=== PATIENT | male | born 1945 | race Caucasian/White ===

== ENCOUNTER → 2017-12-31 | Outpatient (CLI) | payer OTHER, BC | LOC: FIMAGING 13:37 | PROVIDERS: ATTEND Physician Assistant Surgical | DX: M43.12 Spondylolisthesis, cervical region (principal); M53.82 Other specified dorsopathies, cervical region; M50.322 Other cervical disc degeneration at C5-C6 level ==

== ENCOUNTER 2018-01-05 18:43 | Inpatient (IN) | payer OTHER, BC ==
[2018-01-05] MEDS ORDERED: ACETAMINOPHEN 325 MG TAB PO ONE (18:59)
[2018-01-05] MEDS ORDERED: HYDROmorphONE/DILAUDID 2 MG/ML INJ IVP ONE (19:11)
[2018-01-05 19:19] LABS: PLATELET COUNT 237 10^3/uL (150-400)
--- NOTE | 2018-01-05 19:34 | EDPHY ---
H & P Stated Complaint: pain, fever sp, C spine fusion Time Seen by Provider: 01/05/18 18:58 HPI/ROS: CHIEF COMPLAINT: Severe postop pain HISTORY OF PRESENT ILLNESS: 72-year-old male 3 days status post multilevel cervical fusion presents with severe postop pain. Difficult to control postoperative pain over the past 3 days, currently on oxycodone, OxyContin, Valium and Flexeril. Discharged home from [facility] today. Unable to get comfortable at home. Pain is located in the posterior neck and shoulders and is severe. No radicular pain. Was not aware he had a fever. Has an ongoing occasional cough. No abdominal pain or dysuria. REVIEW OF SYSTEMS: complete 10 point ROS reviewed and is negative except for the noted elements in the HPI - Personal History Current Tetanus/Diphtheria Vaccine: Yes Current Tetanus Diphtheria and Acellular Pertussis (TDAP): Yes - Medical/Surgical History Hx Asthma: No Hx Chronic Respiratory Disease: No Hx Diabetes: No Hx Cardiac Disease: No Hx Renal Disease: No Hx Cirrhosis: No Hx Alcoholism: No Hx HIV/AIDS: No Hx Splenectomy or Spleen Trauma: No Other PMH: C3-7 fusion, R knee replacement, R rotator cuff surgery - Social History Smoking Status: Former smoker Alcohol Use: Sober Drug Use: None Additional Social History: Neurosurgeon: Dr. Stout - Physical Exam Exam: General Appearance: Alert, pleasant, appears in pain Eyes: Pupils equal and round, no conjunctival pallor or injection ENT, Mouth: Mucous membranes moist Neck: In cervical spine collar Respiratory: Upper airway sounds bilaterally, clear with coughing Cardiovascular: Regular rate and rhythm Gastrointestinal: Abdomen is soft and nontender Neurological: A&O, nonfocal, normal gait Skin: Warm and dry Extremities: Normal inspection Psychiatric: Mood and affect normal Constitutional: Initial Vital Signs Temperature (C) 38.6 C H 01/05/18 18:51 Heart Rate 103 H 01/05/18 18:51 Respiratory Rate 20 01/05/18 18:51 Blood Pressure 125/67 H 01/05/18 18:51 O2 Sat (%) 97 01/05/18 18:51 O2 Delivery Mode Room Air Allergies/Adverse Reactions: No Known Allergies Allergy (Verified 01/05/18 18:49) Home Medications: Medication Instructions Recorded Atorvastatin Calcium [Lipitor 40 40 mg PO HS 12/31/17 mg (*)] Donepezil HCl [Aricept 5 MG (*)] 5 mg PO HS 12/31/17 Gabapentin [Gabapentin 800 mg] 800 mg PO TID 12/31/17 Terazosin HCl [Terazosin HCl] 10 mg PO BID 12/31/17 Acetaminophen [Tylenol 325mg (*)] 650 mg PO Q4 PRN 01/05/18 Cyclobenzaprine [Flexeril 10 MG 10 mg PO TID 01/05/18 (*)] Diazepam [Valium 5 MG (*)] 5 mg PO Q6H PRN 01/05/18 Enoxaparin Sodium 40 mg SQ DAILY 01/05/18 Sennosides/Docusate Sodium 1 each PO BID 01/05/18 [Senna-Docusate Sodium Tablet] oxyCODONE HCL [Oxycodone HCl ER] 10 mg PO BID 01/05/18 oxyCODONE IR [Oxycodone Ir (*)] 5 - 10 mg PO Q4 PRN 01/05/18 Medical Decision Making - Diagnostics Imaging Results: Imaging Impressions Chest X-Ray 01/05/18 18:59 Impression: Hypoventilation and left basilar atelectasis. No pneumonia or failure. Imaging: I viewed and interpreted images myself ED Course/Re-evaluation: This patient presents with severe postoperative pain and new onset fever. Dilaudid 1 mg IV given with relief of pain. Meets SIRS criteria, lactate normal. Chest x-ray is unremarkable. Urinalysis reveals no evidence of urinary tract infection. Blood cultures drawn. No antibiotics given. The patient was stable throughout his emergency department stay. Dr. Baez was consulted and will admit the patient for pain control and fever. Differential Diagnosis: Differential diagnosis includes pyelonephritis, cholecystitis, influenza, cellulitis, pneumonia, abscess, meningitis. - Data Points Laboratory Results: Laboratory Results 01/05/18 16:06 01/05/18 16:06 01/05/18 01/05/18 01/05/18 16:06 16:06 16:06 WBC 10.14 10^3/uL H 10^3/uL (3.80-9.50) RBC 3.80 10^6/uL L 10^6/uL (4.40-6.38) Hgb 11.8 g/dL L g/dL (13.7-17.5) Hct 34.0 % L % (40.0-51.0) MCV 89.5 fL fL (81.5-99.8) MCH 31.1 pg pg (27.9-34.1) MCHC 34.7 g/dL g/dL (32.4-36.7) RDW 12.5 % % (11.5-15.2) Plt Count 237 10^3/uL 10^3/uL (150-400) MPV 9.4 fL fL (8.7-11.7) Neut % (Auto) 71.3 % % (39.3-74.2) Lymph % (Auto) 12.9 % L % (15.0-45.0) [place] % (Auto) 10.9 % % (4.5-13.0) Eos % (Auto) 4.3 % % (0.6-7.6) Baso % (Auto) 0.2 % L % (0.3-1.7) Nucleat RBC Rel Count 0.0 % % (0.0-0.2) Absolute Neuts (auto) 7.22 10^3/uL H 10^3/uL (1.70-6.50) Absolute Lymphs (auto) 1.31 10^3/uL 10^3/uL (1.00-3.00) Absolute Monos (auto) 1.11 10^3/uL H 10^3/uL (0.30-0.80) Absolute Eos (auto) 0.44 10^3/uL H 10^3/uL (0.03-0.40) Absolute Basos (auto) 0.02 10^3/uL 10^3/uL (0.02-0.10) Absolute Nucleated RBC 0.00 10^3/uL 10^3/uL (0-0.01) Immature Gran % 0.4 % % (0.0-1.1) Immature Gran # 0.04 10^3/uL 10^3/uL (0.00-0.10) VBG Lactic Acid 1.2 mmol/L mmol/L (0.7-2.1) Sodium 130 mEq/L L mEq/L (135-145) Potassium 3.9 mEq/L mEq/L (3.3-5.0) Chloride 94 mEq/L L mEq/L (97-110) Carbon Dioxide 28 mEq/l mEq/l (22-31) Anion Gap 8 mEq/L mEq/L (6-14) BUN 12 mg/dL mg/dL (7-23) Creatinine 0.9 mg/dL mg/dL (0.7-1.3) Estimated GFR > 60 Glucose 123 mg/dL H mg/dL (70-100) Calcium 9.4 mg/dL mg/dL (8.5-10.4) Medications Given: Discontinued Medications Acetaminophen (Tylenol) 650 mg PO EDNOW ONE Stop: 01/05/18 19:00 Last Admin: 01/05/18 19:18 Dose: 650 mg Hydromorphone HCl (Dilaudid) 1 mg IVP EDNOW ONE Stop: 01/05/18 19:12 Last Admin: 01/05/18 19:18 Dose: 1 mg Departure - Departure Disposition: [facility] Acute Clinical Impression: Postoperative pain after spinal surgery Condition: Fair
[2018-01-05] MEDS ORDERED: ACETAMINOPHEN 325 MG TAB PO PRN (21:04)
[2018-01-05] MEDS ORDERED: DIAZEPAM 5 MG TAB PO PRN (21:04)
[2018-01-05 21:15] LABS: PLATELET COUNT 220 10^3/uL (150-400)
[2018-01-05] MEDS: CYCLOBENZAPRINE 10 MG TAB PO SCH (21:29)
[2018-01-05] MEDS: GABAPENTIN 400 MG CAP PO SCH (21:30)
[2018-01-06] MEDS: oxyCODONE IR 5 MG TAB PO PRN ×4 (00:08→14:42)
--- NOTE | 2018-01-06 08:00 | GHP ---
DATE OF ADMISSION: 01/05/2018 CHIEF COMPLAINT: 1. Acute exacerbation of postoperative pain. 2. Hyponatremia. 3. Chronic low back pain. 4. Rash. HISTORY OF PRESENT ILLNESS: The patient is a 72-year-old male who was seen and evaluated both by me and Dr. Petersen this a.m. The patient is about 4 days from a multilevel cervical fusion in which he underwent an ACDF at C3-4 as well as C5 -6, C6-7. He is currently in a collar and was admitted after his immediate postoperative care to [facility]. He had done well yesterday morning and met criteria for discharge from that hospital. He was discharged home yesterday and then in the afternoon yesterday as well as early evening, he developed horrible pain between his shoulder blades. He denies any upper extremity complaints. He states he was feverish, but has no fevers currently. He is currently on oxycodone, OxyContin, Valium and Flexeril. He was unable to get comfortable at home and brought himself to the emergency department for evaluation and admission. He has no real radicular pain. He has some achiness in his left shoulder. He has no numbness, tingling or weakness in his upper extremities. No numbness, tingling, weakness or pain in his lower extremities. No chest pain or shortness of breath. No nausea or vomiting. No abdominal complaints. No dysuria, hematuria, nocturia, urgency or frequency. The patient denies any change in his lower extremity. He is able to ambulate well. REVIEW OF SYSTEMS: Complete 10-point review of systems was reviewed and negative, otherwise noted in HPI. PAST MEDICAL/SURGICAL HISTORY: Consistent for the followin. ACDF C3-4, C5-6, C6-7. 2. Right knee replacement. 3. Right rotator cuff. SOCIAL HISTORY: Patient is sober, former smoker. ALLERGIES: No known drug allergies. MEDICATIONS PRIOR TO ADMISSION: Lovenox, Senokot, Tylenol, Lipitor, Flexeril, Valium, Aricept, gabapentin, oxycodone, OxyContin, terazosin. FAMILY HISTORY: Reviewed, noncontributory. IMMUNIZATIONS: Reported up to date. TRAVEL: No recent travel. PHYSICAL EXAM: GENERAL: This is an awake, alert and oriented male in no acute distress. VITAL SIGNS: Most recent: Blood pressure 150/87 with a MAP of 108, 79 heart rate, 18 respirations, 94% on 2 L, temperature 37.1. HEENT: Head is normocephalic, atraumatic. Pupils are equal, round, reactive to light. EOMI intact. Full visual pérez by confrontation. Ears are patent. Nose is patent. NECK: Soft and supple. No midline tenderness. Full range of motion in flexion, extension, lateral bending and rotation. No nuchal rigidity. RESPIRATORY/CARDIAC: Deferred. ABDOMEN: Soft, nontender. No peritoneal signs. /RECTAL: Deferred. NEURO: Patient is awake, alert, oriented to name , place, location, date, time and situation. Memory is intact to immediate, past and current events. Speech: No aphasia, dysarthria, dysphonia. Cranial nerves 2-12 are grossly intact. Motor: The patient has 5/5 strength in all muscle groups of bilateral upper and lower extremities to include deltoids, biceps, triceps, brachioradialis, wrist flexion, extensors, back tender cylinder, intrinsic, fingers, iliopsoas, quadriceps, hamstring, plantar flexion, dorsiflexion, EHL testing. Sensation is grossly intact to light touch throughout all dermatome distributions, upper extremities. Negative straight leg raise. Negative JENNIFER test. Reflexes of biceps, triceps, brachioradialis, knee jerk and ankle jerk are 2+/4. Toes are downgoing bilaterally. Renee negative. Babinski negative. No evidence of clonus. SKIN: There is a macular papular rash extending in the lower back bilaterally to both inguinal area and to his groin. Consultation from was ordered. MEDICAL DECISION MAKING/DIAGNOSTIC STUDIES: Laboratory tests obtained 2017, show a white count of 10.24 with an H and H of 11.2 and 32.9 with a platelet count of 220. Lactic acid was 1.2. Chemistry obtained 01/05/2018: Sodium 130, potassium 4.1, chloride 95, CO2 28, BUN 12, creatinine 0.9 and glucose 119. Urine was obtained, which showed 1+ ketones, otherwise negative. He has negative for flu A and B. Chest x-ray obtained 01/05/2018, shows hypoventilation, left basilar atelectasis. No pneumonia or failure noted. Blood cultures x2 are pending. IMPRESSION: 1. Postop day #4 status post anterior cervical diskectomy and fusion C3-4, C5-6 , C6-7. 2. Hyponatremia. 3. Rash to lower back, bilateral inguinal area. 4. Postoperative pain. PLAN/DISCUSSION: The patient is a 72-year-old male who was seen evaluated both by me and Dr. Petersen. He is a patient of Dr. Dexter Stout's and just recently underwent surgery with him this last week. He had been doing well and was discharged by me from [facility] yesterday. He met criteria from nursing staff as well as PT/OT. He went home, felt feverish, although labs at this point look fine, his chest x-ray was fine, urinalysis was okay as well as CBC. He has blood cultures pending. He had a T-max yesterday of 38.6, this a.m. was 37.1 and stable since last night at 8 o'clock. We will address his pain needs at this point. The patient was staffed by Dr. Petersen. Dr. Stout will see him later today or tomorrow. I did speak with Internal Medicine and the hospitalist service to have their opinion about this rash, as well his low sodiums. We appreciate their input and care. All questions and concerns were answered. Patient understands and agrees. /[id number]/MODL MTDD
[2018-01-06] MEDS: CYCLOBENZAPRINE 10 MG TAB PO SCH ×3 (08:17→22:34)
[2018-01-06] MEDS: GABAPENTIN 400 MG CAP PO SCH ×3 (08:17→22:35)
[2018-01-06] MEDS: ENOXAPARIN 40 MG/0.4 ML SYR SC SCH (08:18)
[2018-01-06] MEDS: TERAZOSIN HCL 5 MG CAP PO SCH ×2 (08:30→22:36)
--- NOTE | 2018-01-06 11:03 | ASMTCMCOM ---
CM Note CM Note Notes: Spoke with pt in the room and with pt's RN and PT. Pt admitted for post operative pain after discharge yesterday from [facility] for a cervical fusion. Pt scheduled to have lower spine surgery on at [facility], undecided if it will happen here or there. Pt's pain still not controlled, however, PT has discharged him and feels he will be independent on D/C. Pt lives in [place] and is staying with his sister for the immediate future here in [place]. CM to follow. D/C Plan: Home to sister independently. Date Signed: 01/06/2018 11:03 AM Electronically Signed By:Shannon Beard
[2018-01-06] MEDS: ACETAMINOPHEN 500 MG TAB PO SCH ×2 (13:19→22:32)
--- NOTE | 2018-01-06 14:11 | ASMTCMCOM ---
CM Note CM Note Notes: Pt open with [facility]. Date Signed: 01/06/2018 02:10 PM Electronically Signed By:HEATHER Clay
[2018-01-06] MEDS: FAMOTIDINE 20 MG TAB PO SCH ×2 (14:46→22:34)
[2018-01-06] MEDS: CETIRIZINE 10 MG TAB PO SCH (14:46)
[2018-01-06] MEDS: CLOTRIMAZOLE/BETAMET DIPROP 15 GM CRTUBE TP SCH ×2 (16:48→22:33)
--- NOTE | 2018-01-06 19:15 | GCON ---
REFERRING PHYSICIAN: Montana Kaur PA-C REASON FOR CONSULTATION: Evaluation of rash and hyponatremia. HISTORY OF PRESENT ILLNESS: The patient is a 72-year-old male who underwent an ACDF at C3-C4, as well as C5-C6 and C6-C7 approximately 4 days prior to his admission. Overall he did well with surgery and was discharged home from the hospital. He came to the emergency room because he was having severe pain between his shoulder blade area. He had told the admitting group that he was having fevers. During my interview, he said he was not having any but had some chills. He describes feeling more tired than usual for the past 2 days. He is having difficulty thinking straight and feels like he cannot absorb the information. He developed a rash that started approximately 48 hours ago. He is not sure if it is related to new medications. He used his sister's laundry soap, which he has not used before, and the rash is itching. He denies any chest pain. He said he is chronically short of breath. This has been ongoing for 50 years. He has a history of smoking, but quit 35 years ago. He denies any increased frequency or burning with urination. He has had a recent bowel movement. His chief complaint during my evaluation is that he is having severe pain where he had surgery in the cervical spine. He rates it at a level 8 even with the pain medications. PAST MEDICAL HISTORY: 1. Knee replacement. 2. Carpal tunnel surgery. 3. Right rotator cuff surgery. 4. Right knee replacement. 5. Status post an ACDF of C3-C4, C4-C6, C6-C7 in December of 2017. 6. Hyperlipidemia. SOCIAL HISTORY: He quit smoking 35 years ago. He, prior to this, smoked 2 packs a day for 12 years. He drinks a six-pack of beer at night. He is retired. He is a [place] . He is currently not in a relationship. He has a total of 3 children and 2 grandchildren. FAMILY HISTORY: His mom at age 79 from cancer. His father at age 89. He is not clear of the cause. ALLERGIES: No known allergies. HOME MEDICATIONS: Senna 1 tab b.i.d., Flexeril 10 mg p.o. t.i.d., enoxaparin sodium 40 mg subcu daily, Oxy IR 5-10 mg p.o. q.4 hours p.r.n., Valium 5 mg q.6 hours p.r.n., oxycodone 10 mg p.o. b.i.d., Tylenol 650 mg p.o. q.4 hours p.r.n. , terazosin 10 mg p.o. b.i.d., gabapentin 800 mg t.i.d., Aricept 5 mg p.o. q.h.s., and Lipitor 40 mg q.h.s. REVIEW OF SYSTEMS: A 10-point review of systems was performed and was negative , other than pertinent positives in the HPI and past medical history. PHYSICAL EXAM: GENERAL: The patient is a 72-year-old male who appears uncomfortable during my interview. VITAL SIGNS: Blood pressure is 123/58, heart rate of 102, respiratory rate of 18. O2 saturation on 2 L is 97%. Temperature is 37.3 Celsius. EYES: Pupils are equal and reactive. EOMs are intact. No conjunctival injection noted. ENT: Normal ears, hearing intact. NECK: His trachea is midline. He has significant swelling around the neck area. He has a hard collar in place. Steri-Strips are well intact. No redness or drainage is noted. CARDIOVASCULAR: He is in a regular rate and rhythm. He is slightly tachycardic. No murmurs, rubs, or gallops noted. CHEST /LUNGS: Normal respiratory effort. Clear, without wheezing, rales, or rhonchi. ABDOMEN: Soft, nontender. No rebound. No guarding. SKIN: He has a maculopapular rash that extends from his lower back bilaterally into both inguinal areas. The rash around the inguinal area is red and tender. MUSCULOSKELETAL: He is up walking in the room without any difficulty. He appears to have equal upper and lower extremity strength. He is alert and oriented. At times, he loses focus, but appears to have overall normal mood and affect. Normal judgment and insight. LABORATORY DATA: Reviewed. A CBC shows a white blood cell count of 10.42, hemoglobin of 11.2, hematocrit of 32.9, platelet count of 220. Venous lactic acid is 1.2. Chemistry: Sodium is 130, potassium 4.1, chloride of 95, CO2 of 28 , BUN of 12, creatinine 0.9, glucose of 119. A urinalysis shows 1+ ketones, otherwise negative. He was checked for the flu, which is negative. IMAGIN. Chest x-ray shows hypoventilation and left basilar atelectasis. No pneumonia or failure. 2. Cervical spine x-ray shows anterior cervical fusion at C4-C5 and C5 through C7 with satisfactory alignment. I reviewed his care with Montana Kaur, physician food and nutrition services assistant, and discussed his plan of care. ASSESSMENT/PLAN: 1. Pruritic rash. It is difficult to tell if this is fungal versus a seborrheic dermatitis, especially noted in the inguinal area. Will place him on Lotrisone cream to see if this improves. If it does not improve, will further evaluate. Also, because he is having some ongoing itching, we will prescribe Zyrtec to be scheduled daily, as well as Pepcid. 2. Hyponatremia. Will check urine studies, as well as a TSH. He has not been taking very much in because he is having some difficulty swallowing. 3. Moderate oropharyngeal dysphagia. He was seen by Speech Therapy. Diet has been ordered for him. Will place him on a calorie count to make sure he is getting adequate intake. 4. Alcohol use. This may be why he is slightly tachycardic. Will monitor for any signs or symptoms of withdrawal. He may benefit getting a beer with his evening meal. 5. Hyperglycemia. Suspect this is stress induced. 6. Hyperlipidemia. Continue statin. 7. Status post cervical fusion. Care per Neurosurgery. 8. Chronic low back pain. The plan is for him to get surgery this coming . Would recommend making sure his dysphagia and his rash are addressed. Also, will get blood cultures for completeness sake since he said he had some chills and concern for fevers. 9. Back pain. He rates it at a level 8. Will place him on scheduled Tylenol and continue his p.r.n. medications. Will continue monitoring. Thank you for this consultation. The hospitalist will continue to follow the patient during his stay. /[id number]/MODL MTDD
[2018-01-06] MEDS ORDERED: LACTULOSE 20 GM/30 ML UDCUP PO PRN (19:55)
[2018-01-06] MEDS ORDERED: MAGNESIUM HYDROXIDE 30 ML UDCUP PO PRN (19:55)
[2018-01-06] MEDS ORDERED: BISACODYL 10 MG SUPP PR PRN (19:55)
[2018-01-06] MEDS ORDERED: ATORVASTATIN CALCIUM 40 MG TAB PO SCH (21:00)
[2018-01-06] MEDS ORDERED: DONEPEZIL HCL 5 MG TAB PO SCH (21:00)
[2018-01-06] MEDS: SENNOSIDES/DOCUSATE SODIUM TAB PO SCH (22:35)
[2018-01-07] MEDS: ACETAMINOPHEN 500 MG TAB PO SCH ×2 (05:50→13:45)
[2018-01-07] MEDS: oxyCODONE IR 5 MG TAB PO PRN ×2 (06:12→13:46)
--- NOTE | 2018-01-07 07:57 | SOAPPROG ---
SOAP Progress Note Assessment/Plan: Assessment: 72 yo POD #5 C3/4, 5/6, C6/7 ACDF Plan: neuro: stable, pain improving continued leg pain, plan for surgery on Friday PT/OT likely dc home if cleared by medicine fevers, cultures negative so far, appreciate medicine help please call with neuro changes 01/07/18 07:55 Subjective: continued neck pain, no arm pain, no weakness. Objective: Vital Signs Temp Pulse Resp BP Pulse Ox 36.9 C 109 H 17 155/80 H 98 01/06/18 22:19 01/06/18 22:19 01/06/18 22:19 01/06/18 22:19 01/06/18 22:19 Laboratory Results 01/05/18 21:04 01/07/18 04:42 01/06/18 01/07/18 01/08/18 05:59 05:59 05:59 Intake Total 260 1000 Output Total 1100 Balance 260 -100 AAOX4, +FC PERRL, EOMI, no facial droop 5/5 + light touch C/D/I ICD10 Worksheet Patient Problems: Problems Problem Status Onset Postoperative pain after spinal surgery Acute
[2018-01-07] MEDS ORDERED: POLYETHYLENE GLYCOL 3350 17 GM PKT PO SCH (09:00)
[2018-01-07] MEDS: FAMOTIDINE 20 MG TAB PO SCH (09:02)
[2018-01-07] MEDS: CYCLOBENZAPRINE 10 MG TAB PO SCH ×2 (09:02→17:05)
[2018-01-07] MEDS: GABAPENTIN 400 MG CAP PO SCH ×2 (09:02→17:05)
[2018-01-07] MEDS: CETIRIZINE 10 MG TAB PO SCH (09:02)
[2018-01-07] MEDS: TERAZOSIN HCL 5 MG CAP PO SCH (09:02)
[2018-01-07] MEDS: ENOXAPARIN 40 MG/0.4 ML SYR SC SCH (09:03)
[2018-01-07] MEDS: SENNOSIDES/DOCUSATE SODIUM TAB PO SCH (09:03)
--- NOTE | 2018-01-07 11:07 | PDMN ---
Medical Necessity Medical necessity: Pt meets IP criteria as of 01/05/2018 per PA and MCG S-320; est los > 2 mn for ongoing management of post operative pain 4 days s/p ACDF as well as rash and hyponatremia; requiring pain management, hospitalist consult and therapies.
[2018-01-07] MEDS ORDERED: predniSONE 20 MG TAB PO ONE (12:53)
--- NOTE | 2018-01-07 13:01 | HOSPPROG ---
Hospitalist Progress Note Assessment/Plan: 72 yo M w recent c spine surgery admitted w fever, rash, hyponatremia rash: hypersensitivity, either from laundry detergent or preop wipes (he wiped all over body_ no mm involvement slightly elevated eosinophil count noted pred X 1 dc lotrimin (not fungal) rec 0.5% hydrocortisone CREAM as outpt hyponatremia: probn hypovolemic resolved fever: workup neg (cx w no infiltyarte, interp by me) surgical wound OK OK for dc from IM perspective Subjective: rash examined Objective: Vital Signs Temp Pulse Resp BP Pulse Ox 37.4 C 96 18 99/49 L 92 01/07/18 07:55 01/07/18 07:55 01/07/18 07:55 01/07/18 07:55 01/07/18 07:55 Laboratory Results 01/05/18 21:04 01/07/18 04:42 01/06/18 01/07/18 01/08/18 05:59 05:59 05:59 Intake Total 260 1000 Output Total 1100 Balance 260 -100 - Physical Exam Constitutional: no apparent distress Eyes: PERRL Ears, Nose, Mouth, Throat: moist mucous membranes, hearing normal Cardiovascular: regular rate and rhythym Respiratory: no respiratory distress Gastrointestinal: normoactive bowel sounds Genitourinary: No new in urethra Skin: other (pruritic, erythematous raised rash on chest, torso, most intense and nearly confluent around waistband, less so in inquinal fold. no MM involvement) ICD10 Worksheet Patient Problems: Problems Problem Status Onset Postoperative pain after spinal surgery Acute
[2018-01-07] MEDS: CLOTRIMAZOLE/BETAMET DIPROP 15 GM CRTUBE TP SCH (13:02)
--- NOTE | 2018-01-07 16:02 | ASMTLACE ---
LACE Length of stay for Answers: 3 days current admission Acuity / Level of Answers: Yes Care: Did the patient have an inpatient admission? Comorbidities - select Answers: Opioid dependence all that apply / Chronic pain # of Emergency department Answers: 1-2 visits in the last 6 months Score: 11 Date Signed: 01/07/2018 04:01 PM Electronically Signed By:HEATHER Clay
--- NOTE | 2018-01-07 16:05 | ASMTCMCOM ---
CM Note CM Note Notes: Pt medically stable for d/c, [facility] to follow up with pt when appropriate. Pt to return Friday for additional surgery. Date Signed: 01/07/2018 04:05 PM Electronically Signed By:HEATHER Clay
[2018-01-07 16:09] VITALS: BP 135/65
== END 2018-01-07 17:27 | disposition home or self-care (01) | DRG 948 ==
LOC: OBSVTOIN 19:52 → F3N 20:47
PROVIDERS: ADMIT Neurological Surgery; ATTEND Neurological Surgery
DX: G89.18 Other acute postprocedural pain (principal); M54.2 Cervicalgia; E87.1 Hypo-osmolality and hyponatremia; M54.5 Low back pain; R21 Rash and other nonspecific skin eruption; R13.12 Dysphagia, oropharyngeal phase; E78.5 Hyperlipidemia, unspecified; Z98.1 Arthrodesis status; Z96.651 Presence of right artificial knee joint; Z87.891 Personal history of nicotine dependence
CPT/HCPCS: 92526-GN; 92610-GN; 96374; 97161-GP; 97165-GO; G8978-GP-CI; G8979-GP-CI; G8980-GP-CI; G8987-GO-CI; G8988-GO-CH; G8989-GO-CI; G8996-GN-CL; G8997-GN-CJ; J1170; J1650; J2270; J7512

== ENCOUNTER 2018-01-08 13:43 | Observation (INO) | payer OTHER, BC ==
[2018-01-13] MEDS ORDERED: THROMBIN (BOVINE) 20,000 UNIT VIAL TP ONE (13:48)
[2018-01-13] MEDS ORDERED: CHLORHEXIDINE GLUC HIBICLENS 118 ML BTL TP ONE (13:48)
[2018-01-13] MEDS ORDERED: BACITRACIN ZINC 14.2 GM OINTTUBE TP ONE (13:48)
[2018-01-13] MEDS ORDERED: ACETAMINOPHEN 500 MG TAB PO ONE (13:49)
[2018-01-13] MEDS ORDERED: ceFAZolin 2 GM/DEXTROSE 100 ML IV ONE (13:49)
[2018-01-13] MEDS ORDERED: BUPIVACAINE/EPI 0.25% 30 ML SDV ONE (13:49)
[2018-01-13] MEDS ORDERED: GABAPENTIN 300 MG CAP PO ONE (13:49)
[2018-01-13] MEDS ORDERED: BACITRACIN 50,000 UNITS/10 ML SYR IRR ONE (13:49)
[2018-01-13] MEDS ORDERED: LR 1,000 ML IV ONE (14:27)
--- NOTE | 2018-01-13 15:08 | PDHPUP ---
History & Physical Update H&P update statement: This history and physical update is based on an assessment of the patient which was completed after admission or registration (within 24 hours), but prior to the surgery/procedure. H&P update: H&P reviewed & patient examined, no change in patient's condition since H&P completed (All questions answered and consents signed. Patient marked. Reviewed with him the L2-L5 decompressive laminectomy (slightly modification from the microdecompression planned with Dr Laura). Also reviewed that he still has aome foraminal stenosis and L5/S1 stenosis that was not going to be addressed with this surgery and that may require additional surgery in the future. He and his daughter expressed an understanding and still wich to proceed.)
[2018-01-13] MEDS ORDERED: fentaNYL 250 MCG/5 ML INJ ONE (15:13)
[2018-01-13] MEDS ORDERED: PROPOFOL/EMULSION 500 MG/50 ML BOTTLE IV ONE ×2 (15:14)
[2018-01-13] MEDS ORDERED: MAGNESIUM HYDROXIDE 30 ML UDCUP PO PRN (16:04)
[2018-01-13] MEDS ORDERED: LACTULOSE 20 GM/30 ML UDCUP PO PRN (16:04)
[2018-01-13] MEDS ORDERED: POLYETHYLENE GLYCOL 3350 17 GM PKT PO PRN (16:04)
[2018-01-13] MEDS ORDERED: BISACODYL 10 MG SUPP PR PRN (16:04)
[2018-01-13] MEDS ORDERED: diphenhydrAMINE 25 MG CAP PO PRN (16:04)
[2018-01-13] MEDS ORDERED: NS 1,000 ML IV SCH (16:15)
--- NOTE | 2018-01-13 16:16 | POSTOPPROG ---
Post Op Note Date of Operation: 01/13/18 Surgeon: Jose Bustamante Seed Laboratory Technician: RUSTAM Nickerson PAC Anesthesia: GET(General Endotracheal) Pre-op Diagnosis: lumbar stenosis Post-op Diagnosis: lumbar stenosis Indication: lumbar stenosis Inf/Abcess present in the surg proc area at time of surgery?: No PA Addendum - Addendum .: S: O: NAD A&Ox3 MAEx4 5/5 and equal in BUE and BLE A/P 72y/o male s/p L2-L5 laminectomy -Advance diet as tolerated -Optimize pain management -Continue hard cervical collar s/p ACDF C3/4 and C5-7 with a few weeks ago -JPx1 -DVT prophx: TEDs, SCDs, Lovenox okay POD1 -Please notify NS with any change in neuro/motor exam
[2018-01-13] MEDS ORDERED: MIDAZOLAM 2 MG/2 ML VIAL IVP ONE (16:30)
[2018-01-13 16:31] LABS: PLATELET COUNT 367 10^3/uL (150-400)
--- NOTE | 2018-01-13 16:36 | PDANEPAE ---
ANE History of Present Illness 72 year old male for L2-L5 laminectomy. Recent 01/02/18 cervical fusion. Reports ETOH 6/day. ANE Past Medical History - Cardiovascular History Hx Hypertension: Yes Hx Arrhythmias: No Hx Chest Pain: No Hx Coronary Artery / Peripheral Vascular Disease: No Hx CHF / Valvular Disease: No Hx Palpitations: No - Pulmonary History Hx COPD: No Hx Asthma/Reactive Airway Disease: No Hx Recent Upper Respiratory Infection: No Hx Oxygen in Use at Home: No Hx Sleep Apnea: Yes Sleep Apnea Screening Result - Last Documented: Positive Pulmonary History Comment: LIBERTAD positive, uses mouthpiece - Neurologic History Hx Cerebrovascular Accident: No Hx Seizures: No Hx Dementia: No - Endocrine History Hx Diabetes: No - Renal History Hx Renal Disorders: No Renal History Comment: BPH - Liver History Hx Hepatic Disorders: No - Neurological & Psychiatric Hx Hx Neurological and Psychiatric Disorders: Yes Neurological / Psychiatric History Comment: anxiety, PTSD ([place] vet) - Cancer History Hx Cancer: No - Congenital Disorder History Hx Congenital Disorders: No - GI History Hx Gastrointestinal Disorders: No - Other Health History Other Health History: Wears glasses. bilateral hearing aids. generalized arthritis - Chronic Pain History Chronic Pain: Yes (generalized from arthritis) - Surgical History Prior Surgeries: Cervial spine fusion and discectomy (C3-7). total right knee replacement, 2012. right rotator cuff repair, 2015. right hand carpel tunnel, 2011 ANE Review of Systems Review of systems is: negative Review of Systems: - Exercise capacity METS (RN): 4 METS ANE Patient History - Allergies Allergies/Adverse Reactions: chlorhexidine Allergy (Verified 01/13/18 14:10) - Home Medications Home Medications: Atorvastatin Calcium [Lipitor 40 mg (*)] 40 mg PO HS 12/31/17 [Last Taken 1 Day Ago ~01/12/18] Donepezil HCl [Aricept 5 MG (*)] 5 mg PO HS 12/31/17 [Last Taken 1 Day Ago ~] Gabapentin [Gabapentin 800 mg] 800 mg PO TID 12/31/17 [Last Taken 01/13/18] Terazosin HCl 10 mg PO BID 12/31/17 [Last Taken 1 Day Ago ~01/12/18] Cyclobenzaprine [Flexeril 10 MG (*)] 10 mg PO TID 01/05/18 [Last Taken 01/13/18 10:30] oxyCODONE HCL [Oxycodone HCl ER] 10 mg PO BID 01/05/18 [Last Taken 1 Day Ago ~] oxyCODONE IR [Oxycodone Ir (*)] 5 - 10 mg PO Q4 PRN 01/05/18 [Last Taken 03:00] - NPO status NPO Since - Liquids (Date): 01/13/18 NPO Since - Liquids (Time): 11:30 NPO Since - Solids (Date): 01/12/18 NPO Since - Solids (Time): 20:30 - Smoking Hx Smoking Status: Former smoker - Family Anes Hx Family Hx Anesthesia Complications: none ANE Labs/Vital Signs - Labs Result Diagrams: 01/13/18 16:09 - Vital Signs Blood Pressure: 155/81 Heart Rate: 90 Respiratory Rate: 20 O2 Sat (%): 93 Height: 170.18 cm Weight: 83.915 kg ANE Physical Exam - Airway Neck exam: decreased ROM, spinal fusion, C-collar in place Mallampati Score: Class 2 Mouth exam: normal dental/mouth exam - Pulmonary Pulmonary: no respiratory distress - Cardiovascular Cardiovascular: regular rate and rhythym - ASA Status ASA Status: III ANE Anesthesia Plan Anesthesia Plan: general endotracheal anesthesia Specialized Airway: video laryngoscope
[2018-01-13] MEDS ORDERED: DEXAMETHASONE 4 MG/ML VIAL IVP PRN (16:39)
[2018-01-13] MEDS ORDERED: LABETALOL HCL 5 MG/ML 20 ML MDV IVP PRN (16:39)
[2018-01-13] MEDS ORDERED: LR 500 ML IV PRN (16:39)
[2018-01-13] MEDS ORDERED: NALOXONE HCL 0.4 MG/ML INJ IVP PRN (16:39)
[2018-01-13] MEDS ORDERED: ALBUTEROL 3 ML DEYVIAL IH PRN (16:39)
[2018-01-13] MEDS ORDERED: DIAZEPAM 5 MG/ML 1 ML SYR ONE ×2 (18:09→19:20)
[2018-01-13] MEDS: DIAZEPAM 5 MG/ML 1 ML SYR IVP PRN ×5 (18:10→20:19)
[2018-01-13] MEDS ORDERED: fentaNYL 100 MCG/2 ML INJ ONE ×2 (18:23→21:42)
[2018-01-13] MEDS ORDERED: METHOCARBAMOL 750 MG TAB ONE (18:23)
[2018-01-13] MEDS ORDERED: HYDROmorphONE/DILAUDID 2 MG/ML INJ ONE ×2 (18:23→21:42)
[2018-01-13] MEDS: fentaNYL 100 MCG/2 ML INJ IVP PRN ×5 (18:24→22:41)
[2018-01-13] MEDS: HYDROmorphONE/DILAUDID 2 MG/ML INJ IVP PRN ×7 (18:32→22:42)
[2018-01-13] MEDS: METHOCARBAMOL 750 MG TAB PO PRN (18:36)
--- NOTE | 2018-01-13 18:42 | POSTANESTH ---
Post Anesthetic Evaluation Cardiovascular Status: Normal, Stable Respiratory Status: Normal, Stable Level of Consciousness/Mental Status: Moderately Sleepy Pain Control: Adequate, Prn Tx Ordered Nausea/Vomiting Control: Adequate, Prn Tx Ordered Complications Possibly Related to Anesthesia: None Noted
[2018-01-13] MEDS ORDERED: oxyCODONE IR 5 MG TAB ONE (20:09)
[2018-01-13] MEDS: oxyCODONE IR 5 MG TAB PO PRN (20:11)
[2018-01-13] MEDS ORDERED: KETOROLAC 30 MG/1 ML SDV ONE (20:48)
[2018-01-13] MEDS ORDERED: DONEPEZIL HCL 5 MG TAB PO SCH (21:00)
[2018-01-13] MEDS: FAMOTIDINE 20 MG TAB PO SCH (21:00)
[2018-01-13] MEDS: TERAZOSIN HCL 5 MG CAP PO SCH (21:00)
[2018-01-13] MEDS: SENNOSIDES/DOCUSATE SODIUM TAB PO SCH (21:00)
[2018-01-13] MEDS ORDERED: ATORVASTATIN CALCIUM 40 MG TAB PO SCH (21:00)
[2018-01-13] MEDS ORDERED: KETOROLAC 30 MG/1 ML SDV IVP ONE (21:15)
[2018-01-13] MEDS: ceFAZolin 2 GM/DEXTROSE 100 ML IV SCH (21:59)
[2018-01-13] MEDS ORDERED: GABAPENTIN 400 MG CAP PO SCH (22:00)
--- NOTE | 2018-01-13 23:07 | GOP ---
DATE OF OPERATION: 01/13/2018 SURGEON: Jose Bustamante MD SMELTER LINER: Nicole Nickerson, HUSSEIN. ANESTHESIA: General. PREOPERATIVE DIAGNOSIS: 1. Lumbar spondylosis of L2 through L5 with severe spinal stenosis L2-L3, L3-L4 , and L4-L5. 2. Lower extremity radiculopathy and claudication. 3. Treatment refractory to nonoperative intervention. POSTOPERATIVE DIAGNOSIS: 1. Decompressive laminectomy with bilateral medial facetectomies of L2-L3, L3- L4, and L4-L5. 2. Use of intraoperative fluoroscopy, less than 1 hour physician time. 3. Use of neuromonitoring. 4. Use of microscope. PROCEDURE PERFORMED: 1. Decompressive laminectomy with bilateral medial facetectomies of L2-L3, L3- L4, and L4-L5. 2. Use of intraoperative fluoroscopy, less than 1 hour physician time. 3. Use of neuromonitoring. 4. Use of microscope. FINDINGS: per imaging SPECIMENS: None. ESTIMATED BLOOD LOSS: 100 mL. INDICATIONS: The patient is a very pleasant gentleman who is a patient of my partner, Dr. Stout, who underwent prior cervical surgery recently. Dr. Stout had to leave [facility], however, and the patient wished to pursue lumbar surgery sooner rather than later and was scheduled for a microdecompression. However, I felt the patient would be better suited for a full lumbar laminectomy and decompression, given his severe central stenosis. Patient was willing to proceed forth after discussion of the risks, benefits, and alternatives. He did understand also that he had foraminal stenosis and some degenerative disease at the L5-S1 level which may require additional surgery in the future. DESCRIPTION OF PROCEDURE: Patient was brought to the operating theater and underwent general anesthesia without complications. He had Venodynes, JOSE hose , and the appropriate lines placed by Anesthesia. He was flipped prone onto the Vu frame, and all bony prominences were inspected and padded. The lower lumbar region was then prepped and draped in usual sterile surgical fashion. A time-out was completed per protocol, and the patient received antibiotics within 1 hour of incision. Using lateral fluoroscopy and a spinal needle, we picked our entry point to the L2 through L5 levels. This was marked in the midline. The incision was infiltrated with Marcaine with epinephrine. The incision was taken down with the scalpel blade and then using monopolar taken down to midline through the lumbodorsal fascia. A subperiosteal dissection was carried to the medial facet joints of L2-L3, L3-L4, and L4-5. Deep retractors were placed to maintain exposure. We confirmed our level using lateral fluoroscopy. At this point, using a combination of bur tip on the drill bit, Kerrison punches, and Leksell rongeur, we completed a decompressive laminectomy with bilateral medial facetectomies of L2-L3, L3-L4, and L4-5. We continued until we felt that everything was well decompressed on manual palpation. We confirmed the decompression levels on lateral x-rays. We then placed a drain in the subfascial space. The wound was irrigated copiously with bacitracin irrigation. We closed the wound in multiple layers using Vicryl sutures for the deep layers and Dermabond for the skin. The patient's wounds were dressed sterilely. He was then flipped supine onto the transfer cart, where he was awakened, extubated, and taken to the recovery room in stable condition. There were no complications and no noted changes on neuromonitoring throughout the procedure. COMPLICATIONS: None. /[id number]/MODL MTDD
[2018-01-13] MEDS: GABAPENTIN 300 MG CAP PO SCH (23:38)
[2018-01-13] MEDS: CYCLOBENZAPRINE 10 MG TAB PO SCH (23:39)
[2018-01-13] MEDS: ACETAMINOPHEN 500 MG TAB PO SCH (23:52)
[2018-01-14] MEDS: METHOCARBAMOL 750 MG TAB PO PRN ×2 (02:15→16:20)
[2018-01-14] MEDS: oxyCODONE IR 5 MG TAB PO PRN ×2 (02:15→14:02)
[2018-01-14 05:09] LABS: PLATELET COUNT 357 10^3/uL (150-400)
[2018-01-14] MEDS: ceFAZolin 2 GM/DEXTROSE 100 ML IV SCH (05:47)
[2018-01-14] MEDS: GABAPENTIN 300 MG CAP PO SCH ×2 (05:52→14:01)
[2018-01-14] MEDS: ACETAMINOPHEN 500 MG TAB PO SCH ×2 (05:53→14:01)
--- NOTE | 2018-01-14 07:39 | NEUSURGPN ---
Date of Surgery: 01/13/18 Post Op Day: 1 Assessment/Plan: Assessment: 72 y/o male s/p L2-L5 laminectomy POD #1 Plan: -pt states that he has lower back pain. Pt states that LE symptoms are usually present with standing-will see how he does today -PT/OT pending -Advance diet as tolerated -Optimize pain management-CPM -Continue hard cervical collar s/p ACDF C3/4 and C5-7 with a week ago -DAISHA x [address] -DVT prophx: TEDs, SCDs, Lovenox okay POD1 if not ambulating well -Please notify NS with any change in neuro/motor exam -Pt seen by Dr Bustamante as well this am Subjective: Awake and alert. NAD. Eating/drinking and voiding. No f/c/n/v/d. Objective: NAD A&Ox3 MAEx4 5/5 and equal in BUE and BLE CN 2-12 grossly intact +lt touch CDI DAISHA in place Neuro Check Frequency: per routine Urinary Catheter in Place: No - Physician Discussed Patient with DrIssa: Dianna Patient Seen by : Dianna Neurosurgery Physical Exam - Vitals, I&O, Labs I and O 01/13/18 01/14/18 01/15/18 05:59 05:59 05:59 Intake Total 3141 Output Total 1265 Balance 1876 Weight 83.915 kg Intake: Oral (ml) 970 IV Intake (ml) 1600 IV Infused (ml) 571 Ns 1,000 ml @ 75 mls/hr 471 IV CONT TERESA Rx#: [id number] ceFAZolin 2 GM/DEXTROSE 100 100 ml @ 200 mls/hr IV ONCALL ONE Rx#:[id number] Output: Urine (ml) 1150 Urinal 1150 Estimated Blood Loss (ml) 100 DAISHA Drain Output (ml) 15 Back Bharat Joseph 15 Other: Intake Quantity Yes Sufficient Number of Voids Urinal 1 Vital Signs Temp Pulse Resp BP Pulse Ox 36.6 C 78 12 106/60 100 01/14/18 04:00 01/14/18 04:00 01/14/18 04:00 01/14/18 04:00 01/14/18 04:00 Laboratory Results 01/14/18 05:04 01/14/18 05:04 ICD10 Worksheet Patient Problems: Problems Problem Status Onset Postoperative pain after spinal surgery Acute
[2018-01-14] MEDS: SENNOSIDES/DOCUSATE SODIUM TAB PO SCH (08:39)
[2018-01-14] MEDS: FAMOTIDINE 20 MG TAB PO SCH (08:39)
[2018-01-14] MEDS: CYCLOBENZAPRINE 10 MG TAB PO SCH ×2 (08:39→16:18)
[2018-01-14] MEDS: TERAZOSIN HCL 5 MG CAP PO SCH (09:00)
--- NOTE | 2018-01-14 09:27 | ASMTCASEMG ---
Living Arrangements What is your living Answers: With Child(davis) arrangement? Who do you live with? Type Of Residence What kind of residence do Answers: House you live in? Type of Residence Facility Name Notes: Patient has a [place] address but a daughter who lives locally. Discharge Plan Comments Coordination Status Comments Notes: Patient is a 72yo male who comes to [facility] for a decompressive laminectomy with bilateral medial facetectomies. PT/OT/SPL have been ordered. Patient has a [place] address, but a daughter, Marcella who lives locally.He does have advanced directives and a copy has been requested. D/C plan TBD. CM will follow. Date Signed: 01/14/2018 09:26 AM Electronically Signed By:Martina Pino LCSW
[2018-01-14 11:35] VITALS: BP 102/43
[2018-01-14] MEDS ORDERED: ENOXAPARIN 40 MG/0.4 ML SYR SC SCH (18:00)
== END 2018-01-14 16:40 | disposition home or self-care (01) ==
LOC: F3N 01-13 13:20 → F2N 01-13 23:02
PROVIDERS: ADMIT Neurological Surgery; ATTEND Neurological Surgery
PROC: 01NB0ZZ Release Lumbar Nerve, Open Approach (ICD-10-PCS; principal; 2018-01-13 15:15)
DX: M48.062 Spinal stenosis, lumbar region with neurogenic claudication (principal); M47.26 Other spondylosis with radiculopathy, lumbar region; G89.18 Other acute postprocedural pain; M48.07 Spinal stenosis, lumbosacral region; I10 Essential (primary) hypertension; G47.33 Obstructive sleep apnea (adult) (pediatric); E78.00 Pure hypercholesterolemia, unspecified; Z98.1 Arthrodesis status; Z87.891 Personal history of nicotine dependence
CPT/HCPCS: 63047; 63048; 76001; 92610; 97116; 97161; 97165; 97535; G8978; G8979; G8980; G8987; G8988; G8989; G8996; G8997; G8998; J0690; J1170; J1885; J2270; J2704; J3010; J3360

== ENCOUNTER 2018-02-19 14:11 | Emergency (ER) | payer OTHER, BC ==
--- NOTE | 2018-02-19 14:53 | EDPHY ---
H & P Smoking Status: Former smoker Time Seen by Provider: 02/19/18 14:35 HPI/ROS: This patient notes right breast swelling and tenderness over the past 3 weeks. He states that at rest there is minimal discomfort to the right breast but there is steady tenderness whenever he touches it. There is no been no improvement over the past 3 weeks he came in for evaluation. He has never had any swelling or pain to his breast prior to the past 3 weeks. ROS: Constitutional: No fevers Integumentary: No skin rash so seated with this or elsewhere on his body Endocrine: No nipple discharge. Pulmonary: No pleuritic pain or dyspnea Cardiovascular: No lightheadedness Musculoskeletal: He has mild neck and back pain 5 weeks status post fusion 7 point review of symptoms is performed and otherwise negative with exception of pertinent positives and negatives listed in HPI and ROS ([place]) Past Medical/Surgical History: Chronic neck and back pain with radiculopathy and recent C3 through 7 fusion and lumbar fusion. ([place]) Physical Exam: Physical Exam Vital signs are normal. General: No acute distress HEENT: Atraumatic. Eyes: Pupils equal and react to light. Extraocular motions are intact. Lungs: Clear to auscultation bilaterally. No rales or rhonchi. No respiratory distress. Cardiac: Regular rate and rhythm with no murmur gallop or rub. Brisk capillary refill is intact throughout. Breast exam: Patient has swelling and tenderness circumferentially around the right nipple and the mass or swelling is visible externally on exam. Feels like fibrous tissue that is swollen. There is no fluctuance or erythema. No dimpling of the skin. Appreciate no lymphadenopathy in the axillary region or surrounding this. Skin: No rash or pallor. Neuro: Alert and oriented x3 with no sensorimotor deficits. Initial differential diagnosis: Breast CA, fibrous tissue, tumor, gynecomastia ([place]) Constitutional: Initial Vital Signs Temperature (C) 37.1 C 02/19/18 14:19 Heart Rate 75 02/19/18 14:19 Respiratory Rate 16 02/19/18 14:19 Blood Pressure 133/65 H 02/19/18 14:19 O2 Sat (%) 97 02/19/18 14:19 Allergies/Adverse Reactions: chlorhexidine Allergy (Verified 02/19/18 14:26) Home Medications: Medication Instructions Recorded Atorvastatin Calcium [Lipitor 40 40 mg PO HS 12/31/17 mg (*)] Donepezil HCl [Aricept 5 MG (*)] 5 mg PO HS 12/31/17 Gabapentin [Gabapentin 800 mg] 800 mg PO TID 12/31/17 Terazosin HCl 10 mg PO BID 12/31/17 ACETAMINOPHEN 02/19/18 Vitamin B-12 02/19/18 MDM/Departure - MDM Imaging Results: Imaging Impressions Breast Ultrasound 02/19/18 14:45 Impression: 1. Unilateral gynecomastia on the right. ED Course/Re-evaluation: I discussed this case with Dr. Gay, [facility] emergency physician at 3:00 p.m. With ultrasound and lab studies pending. ([place]) Discussed ultrasound results with Dr. Parker at 4:[address] Parker feels ultrasound results consistent with benign gynecomastia. Currently not recommending any other follow-up imaging or biopsy. Discussed with patient and ex in detail. Patient does not have primary care in the area and will likely be going to [place] in March where he does have primary care. I suggested he follow up with primary care to monitor the gynecomastia. I recommended he follow up sooner if there are any changes. (Doreen Gay) - Depart Disposition: Home, Routine, Self-Care Clinical Impression: Subareolar gynecomastia in male Condition: Good Instructions: Gynecomastia (ED) Additional Instructions: See a primary care physician as discussed. Sooner if you have any changes to the breast tissue. Referrals: LOIDA GUILLEN MD [Other] - As per Instructions Mary Ngo MD [Medical Doctor] - As per Instructions
[2018-02-19 16:57] VITALS: BP 143/62
== END 2018-02-19 16:57 | disposition home or self-care (01) ==
LOC: CED 14:11
DX: N62 Hypertrophy of breast (principal); N64.4 Mastodynia; Z98.1 Arthrodesis status; Z98.890 Other specified postprocedural states
CPT/HCPCS: 76641-PO; 80048-PO

== ENCOUNTER → 2018-03-11 | Outpatient (CLI) | payer OTHER, BC | LOC: FIMAGING 10:46 | PROVIDERS: ATTEND Neurological Surgery | DX: M51.36 Other intervertebral disc degeneration, lumbar region (principal); M48.07 Spinal stenosis, lumbosacral region; M48.2 Kissing spine; M50.320 Other cervical disc degeneration, mid-cervical region, unspecified level; Z98.1 Arthrodesis status ==